=== PATIENT | female | born 1975 | race Caucasian/White ===

== ENCOUNTER 2018-06-06 15:14 | Outpatient (CLI) | payer OTHER ==
[~2018-06-06] VITALS: Ht 170.2 cm; Wt 88.2 kg
[2018-06-06 15:31] VITALS: BP 124/66
== END 2018-06-06 16:38 | disposition home or self-care (01) ==
LOC: LDOP 15:14
PROVIDERS: ATTEND Obstetrics & Gynecology Gynecology
DX: O36.8130 Decreased fetal movements, third trimester, not applicable or unspecified (principal); Z3A.35 35 weeks gestation of pregnancy
CPT/HCPCS: 59025; 99211; G0463

== ENCOUNTER 2018-07-08 09:27 | Inpatient (IN) | payer OTHER ==
[~2018-07-08] VITALS: Ht 157.5 cm; Wt 94.0 kg
[2018-07-13] MEDS ORDERED: LACTATED RINGERS 1,000 ML IV SCH ×2 (13:03→15:00)
[2018-07-13] MEDS ORDERED: OXYTOCIN 30U/ 0.9% NaCL 500ML 500 ML IV SCH (13:03)
[2018-07-13] MEDS ORDERED: OXYTOCIN 30U/ 0.9% NaCL 500ML 500 ML ONE ×2 (13:28→13:59)
[2018-07-13 13:30] VITALS: BP 114/64
[2018-07-13] MEDS ORDERED: LACTATED RINGERS 1,000 ML IVBOLUS ONE (13:30)
[2018-07-13] MEDS ORDERED: SODIUM CITRATE/CITRIC ACID 30 ML UDC PO ONE (13:30)
[2018-07-13] MEDS ORDERED: METOCLOPRAMIDE 5 MG/ML, 2ML IV ONE (13:30)
[2018-07-13 13:32] LABS: BASOPHILS # (AUTO) 0.02 x10^3/uL (0-0.1); BASOPHILS % (AUTO) 0 % (0-1); EOSINOPHILS # (AUTO) 0.05 x10^3/uL (0-0.4); EOSINOPHILS % (AUTO) 1 % (1-7); LYMPHOCYTES # (AUTO) 2.07 x10^3/uL (1-3.4); LYMPHOCYTES % (AUTO) 20 % (22-44); MD NO; MEAN CORPUSCULAR HEMOGLOBIN 31.6 pg (27.0-34.8); MEAN CORPUSCULAR HGB CONC 33.9 g/dL (32.4-35.8); MEAN CORPUSCULAR VOLUME 93.3 fL (80-100); MEAN PLATELET VOLUME 8.7 fL (7.4-10.4); MONOCYTES # (AUTO) 0.63 x10^3/uL (0.2-0.8); MONOCYTES % (AUTO) 6 % (2-9); NEUTROPHILS # (AUTO) 7.64 x10^3/uL (1.8-6.8); NEUTROPHILS % (AUTO) 73 % (42-75); PLATELET COUNT 125 x10^3/uL (130-400); RED BLOOD COUNT 4.34 x10^6/uL (3.82-5.3); RED CELL DISTRIBUTION WIDTH 13.7 % (9.6-15.2)
[2018-07-13] MEDS ORDERED: SODIUM CITRATE/CITRIC ACID 30 ML UDC ONE (13:59)
[2018-07-13] MEDS ORDERED: NEWBORN KIT ONE (13:59)
[2018-07-13] MEDS ORDERED: morphine SULFATE/PF 0.5 MG/ML, 10ML ONE (14:33)
[2018-07-13] MEDS ORDERED: DIPH,PERTUSS(ACELL),TET VAC/PF NC IM-VACC PRN (15:00)
[2018-07-13] MEDS ORDERED: MEASLES,MUMPS&RUBELLA VACC/PF 0.5 ML SQ-VACC PRN (15:00)
[2018-07-13] MEDS: LACTATED RINGERS 1,000 ML IV SCH ×2 (15:00→23:00)
[2018-07-13] MEDS ORDERED: CALCIUM CARBONATE 500 MG TAB.CHEW PO PRN (15:00)
[2018-07-13] MEDS ORDERED: RHOGAM FROM BLOOD BANK 1 NOTE EA IM/IV ONE (15:00)
[2018-07-13] MEDS ORDERED: SIMETHICONE 80 MG CHEW TAB PO PRN (15:00)
[2018-07-13] MEDS ORDERED: MISOPROSTOL 200 MCG TABLET PR PRN (15:00)
[2018-07-13] MEDS ORDERED: morphine SULFATE 10 MG/ML, 1ML IVPush PRN (15:00)
[2018-07-13] MEDS: OXYTOCIN 30U/ 0.9% NaCL 500ML 500 ML IV SCH (15:00)
[2018-07-13] MEDS ORDERED: OXYcodone/APAP 5/325MG TABLET PO PRN ×2 (15:00→17:30)
[2018-07-13] MEDS ORDERED: OXYTOCIN 10 UNITS/ML, 1ML ONE (16:00)
[2018-07-13] MEDS ORDERED: CEFAZOLIN 1,000 MG ONE (16:00)
[2018-07-13] MEDS ORDERED: MIDAZOLAM 1 MG/ML, 2ML ONE (16:00)
[2018-07-13] MEDS ORDERED: PHENYLEPHRINE 10 MG/ML ONE (16:00)
[2018-07-13] MEDS ORDERED: ONDANSETRON 2MG/ML, 2ML ONE (16:00)
[2018-07-13] MEDS ORDERED: EPHEDRINE 50 MG/ML, 1ML ONE (16:00)
[2018-07-13] MEDS ORDERED: GLYCOPYRROLATE 0.4 MG/2 ML, 2ML ONE (16:03)
[2018-07-13] MEDS: KETOROLAC 30 MG/1 ML IV SCH ×2 (16:40→22:35)
[2018-07-13] MEDS ORDERED: KETOROLAC 30 MG/1 ML ONE (16:44)
[2018-07-13] MEDS ORDERED: HYDROmorphone 2 MG/ML, 1ML ONE (17:04)
[2018-07-13] MEDS ORDERED: OXYcodone/APAP 5/325MG TABLET ONE (17:13)
[2018-07-13] MEDS ORDERED: HYDROmorphone 2 MG/ML, 1ML IV PRN (17:30)
[2018-07-13 19:05] VITALS: BP 120/74
[2018-07-13] MEDS: LEVETIRACETAM 500 MG TABLET PO SCH (21:14)
[2018-07-13] MEDS: OXCARBAZEPINE 300MG TABLET PO SCH (21:15)
[2018-07-13] MEDS: OXYcodone IR 5MG TABLET PO PRN (21:15)
[2018-07-13] MEDS: DOCUSATE 100 MG CAPSULE PO PRN (21:19)
[2018-07-13 23:45] VITALS: BP 100/64
[2018-07-14 00:01] LABS: BASOPHILS # (AUTO) 0.02 x10^3/uL (0-0.1); BASOPHILS % (AUTO) 0 % (0-1); EOSINOPHILS # (AUTO) 0.03 x10^3/uL (0-0.4); EOSINOPHILS % (AUTO) 0 % (1-7); LYMPHOCYTES # (AUTO) 1.62 x10^3/uL (1-3.4); LYMPHOCYTES % (AUTO) 17 % (22-44); MD NO; MEAN CORPUSCULAR HEMOGLOBIN 31.6 pg (27.0-34.8); MEAN CORPUSCULAR HGB CONC 34.1 g/dL (32.4-35.8); MEAN CORPUSCULAR VOLUME 92.8 fL (80-100); MEAN PLATELET VOLUME 8.6 fL (7.4-10.4); MONOCYTES # (AUTO) 0.55 x10^3/uL (0.2-0.8); MONOCYTES % (AUTO) 6 % (2-9); NEUTROPHILS # (AUTO) 7.29 x10^3/uL (1.8-6.8); NEUTROPHILS % (AUTO) 77 % (42-75); PLATELET COUNT 101 x10^3/uL (130-400); RED BLOOD COUNT 3.95 x10^6/uL (3.82-5.3); RED CELL DISTRIBUTION WIDTH 13.6 % (9.6-15.2)
[2018-07-14] MEDS: OXYTOCIN 30U/ 0.9% NaCL 500ML 500 ML IV SCH ×3 (01:00→21:00)
[2018-07-14] MEDS: OXYcodone IR 5MG TABLET PO PRN ×6 (01:35→21:29)
[2018-07-14] MEDS: LACTATED RINGERS 1,000 ML IV SCH ×3 (01:35→23:00)
[2018-07-14 04:30] VITALS: BP 113/72
[2018-07-14] MEDS: KETOROLAC 30 MG/1 ML IV SCH ×4 (04:35→22:38)
[2018-07-14 07:30] VITALS: BP 101/61
[2018-07-14] MEDS: PRENATAL VIT/IRON/FA 1 EACH TABLET PO SCH (08:11)
[2018-07-14] MEDS: DOCUSATE 100 MG CAPSULE PO PRN ×2 (08:11→21:29)
[2018-07-14 20:00] VITALS: BP 120/77
[2018-07-14] MEDS: LEVETIRACETAM 500 MG TABLET PO SCH (21:30)
[2018-07-14] MEDS: OXCARBAZEPINE 300MG TABLET PO SCH (21:30)
[2018-07-14 22:35] VITALS: BP 126/82
[2018-07-14] MEDS: ONDANSETRON 2MG/ML, 2ML IV PRN (22:38)
[2018-07-15] MEDS: KETOROLAC 30 MG/1 ML IV SCH ×2 (04:23→10:10)
[2018-07-15] MEDS: ONDANSETRON 2MG/ML, 2ML IV PRN ×2 (04:52→10:10)
[2018-07-15] MEDS: LACTATED RINGERS 1,000 ML IV SCH (07:00)
[2018-07-15] MEDS: OXYTOCIN 30U/ 0.9% NaCL 500ML 500 ML IV SCH (07:00)
[2018-07-15 07:30] VITALS: BP 117/81
[2018-07-15] MEDS: DOCUSATE 100 MG CAPSULE PO PRN (07:34)
[2018-07-15] MEDS ORDERED: OXYC-302 PO (07:45)
[2018-07-15] MEDS ORDERED: IBUP-1222 PO (07:45)
[2018-07-15] MEDS ORDERED: ONDA8TAB16 SL (07:46)
[2018-07-15] MEDS: PRENATAL VIT/IRON/FA 1 EACH TABLET PO SCH (09:00)
[2018-07-15] MEDS ORDERED: IBUPROFEN 600 MG TABLET PO PRN (15:00)
== END 2018-07-15 11:05 | disposition home or self-care (01) | DRG 787 ==
LOC: LDIP 07-13 12:55 → 2NW 07-13 18:40
PROVIDERS: ADMIT Obstetrics & Gynecology Gynecology; ATTEND Obstetrics & Gynecology Gynecology
PROC: 10D00Z1 Extraction of Products of Conception, Low, Open Approach (ICD-10-PCS; principal; 2018-07-13)
DX: O34.211 Maternal care for low transverse scar from previous cesarean delivery (principal); O99.354 Diseases of the nervous system complicating childbirth; O69.81X0 Labor and delivery complicated by cord around neck, without compression, not applicable or unspecified; G40.909 Epilepsy, unspecified, not intractable, without status epilepticus; Z37.0 Single live birth; Z3A.40 40 weeks gestation of pregnancy; Z80.41 Family history of malignant neoplasm of ovary; Z82.3 Family history of stroke; Z82.49 Family history of ischemic heart disease and other diseases of the circulatory system; Z90.49 Acquired absence of other specified parts of digestive tract
CPT/HCPCS: 36415; 82803; 85025; 86850; 86900; 90715; G0378; J0690; J1170; J1885; J2250; J2274; J2405; J2370; J2590; J7120